=== PATIENT | male | born 1955 | race Caucasian/White ===

== ENCOUNTER 2017-11-18 08:38 | Inpatient (IN) | payer OTHER ==
[~2017-11-18] VITALS: Ht 177.8 cm; Wt 94.8 kg
[2017-11-18 09:39] LABS: BASOPHILS % 0.5 % (0.0-1.0); EOSINOPHILS # (AUTO) 0.1 (0.0-0.4); EOSINOPHILS % 1.3 % (0.0-6.0); HEMATOCRIT 49.4 % (38.2-49.6); LYMPHOCYTES # (AUTO) 1.1 (1.0-3.2); LYMPHOCYTES % 12.3 % (18.0-39.1); MEAN CORPUSCULAR HEMOGLOBIN 30.6 pg (28-32); MEAN CORPUSCULAR HGB CONC 34.4 g/dL (31-35); MEAN CORPUSCULAR VOLUME 88.8 fL (81-99); MONOCYTES # (AUTO) 0.7 (0.2-0.8); MONOCYTES % 8.3 % (4.4-11.3); NEUTROPHILS # (AUTO) 6.7 (2.1-6.9); NEUTROPHILS % 77.3 % (38.7-80.0); PLATELET COUNT 204 x10e3/uL (140-360); RED BLOOD COUNT 5.56 x10e6/uL (4.3-5.7); RED CELL DISTRIBUTION WIDTH 13.6 % (11.7-14.4)
--- NOTE | 2017-11-18 09:46 | Diagnostic Imaging Report ---
Examination: CT BRAIN WITHOUT CONTRAST History:Slurred speech. Dizziness. Comparison studies:None Technique: Axial images were obtained from the skull base to the vertex. Coronal and sagittal images reconstructed from the axial data. Intravenous contrast: None Findings: Scalp: No abnormalities. Bones: No fractures, blastic or lytic lesions. Brain sulci: Appropriate for age. Ventricles: Normal in size and configuration. No hydrocephalus. Extra-axial space: No abnormalities. Parenchyma: There is a vague area of hypoattenuation in the right striatocapsular region. No masses, hemorrhage, or acute or chronic cortical based vascular insults. Sellar/suprasellar region: No abnormalities. Craniocervical junction: Patent foramen magnum. No Chiari one malformation. Incidental findings: None. Impression: 1. 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 2. No hemorrhage. Signed by: Dr. Leigh Díaz M.D. on 11/18/2017 9:43 AM
[2017-11-18 09:48] LABS: INR 0.97; PROTHROMBIN TIME 12.1 seconds (11.9-14.5)
[2017-11-18 09:49] LABS: PARTIAL THROMBOPLASTIN TIME 26.5 seconds (23.8-35.5)
--- NOTE | 2017-11-18 09:57 | Diagnostic Imaging Report ---
PROCEDURE: A single AP view of the chest. COMPARISON: None. INDICATIONS: SLURRED SPEECH, DIZZINESS FINDINGS: Lines/tubes: None. Lungs: The lungs are well inflated and clear. There is no evidence of pneumonia or pulmonary edema. Pleura: There is no pleural effusion or pneumothorax. Heart and mediastinum: The heart and the mediastinum are unremarkable. Bones: No acute bony abnormality. Degenerative changes of the thoracic spine. IMPRESSION: No acute radiographic abnormality. Dictated by: Josh Hadley M.D. on 11/18/2017 at 9:59 Electronically approved by: Josh Hadley M.D. on 11/18/2017 at 9:59
[2017-11-18 09:58] LABS: ALANINE AMINOTRANSFERASE 23 IU/L (0-55); ALBUMIN 3.6 g/dL (3.5-5.0); ALKALINE PHOSPHATASE 62 IU/L (40-150); BLOOD UREA NITROGEN 20 mg/dL (7-26); BUN/CREATININE RATIO 20 (6-25); CALCIUM 9.9 mg/dL (8.4-10.2); CARBON DIOXIDE 25 mmol/L (22-29); CHLORIDE 101 mmol/L (98-107); CREATINE KINASE 132 IU/L (30-200); CREATININE, SERUM 1.01 mg/dL (0.72-1.25); EST GLOMERULAR FILTRATION RATE > 60 ML/MIN (60-); GLUCOSE 272 mg/dL (74-118); SODIUM 138 mmol/L (136-145)
[2017-11-18] MEDS ORDERED: GLIMEPIRIDE4 MG (10:01)
[2017-11-18] MEDS ORDERED: JANUVIA100 MG (10:01)
[2017-11-18] MEDS ORDERED: INNOPRAN XL80 MG (10:01)
[2017-11-18] MEDS ORDERED: ESCITALOPRAM OX10 MG (10:01)
[2017-11-18] MEDS ORDERED: AMLODIPINE BESY10 MG (10:01)
[2017-11-18] MEDS ORDERED: FARXIGA PO (10:01)
[2017-11-18] MEDS ORDERED: METFORMIN HCL500 MG (10:01)
[2017-11-18] MEDS ORDERED: PIOGLITAZONE HC45 MG (10:01)
[2017-11-18] MEDS ORDERED: ASPIRIN 325 MG TAB PO ONE (10:15)
--- OUTSIDE RECORDS SUMMARY | 2017-11-18 10:52 | XMS REPORT ---
Author Author [facility] Address Unknown Phone Unavailable Care Team Providers Care Sales Consulting Director Name Role Phone RAVINDRA NAIK Unavailable Unavailable Problems This patient has no known problems. Allergies, Adverse Reactions, Alerts This patient has no known allergies or adverse reactions. Medications This patient has no known medications. Results Test Description Test Time Test Comments Text Results Atomic Results Result Comments CT BRAIN WO [place] [address] Patient Name: NINA PERDOMO MR #: [id number] : 1955 Age/Sex: 62/M Req #: [id number] Adm Physician: Ordered by: RAVINDRA NAIK MD Report #: [id number] Location: ER Room/Bed: Procedure: [id number] CT/CT BRAIN WO Exam Date: 11/18/17 Exam Time: 0908 REPORT STATUS: Signed Examination: CT BRAIN WITHOUT CONTRAST History:Slurred speech. Dizziness. Comparison studies:None Technique: Axial images were obtained from the skull base to the vertex. Coronal and sagittal images reconstructed from the axial data. Intravenous contrast: None Findings: Scalp: No abnormalities. Bones: No fractures, blastic or lytic lesions. Brain sulci: Appropriate for age. Ventricles: Normal in size and configuration. No hydrocephalus. Extra-axial space: No abnormalities. Parenchyma: There is a vague area of hypoattenuation in the right striatocapsular region. No masses, hemorrhage, or acute or chronic cortical based vascular insults. Sellar/suprasellar region: No abnormalities. Craniocervical junction: Patent foramen magnum. No Chiari one malformation. Incidental findings: None. Impression: 1. 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 2. No hemorrhage. Signed by: Dr. Leigh Díaz M.D. on 11/18/2017 9:43 AM Dictated By: LEIGH LEAL MD 2 Transcribed By: ISABELA on 11/18/17942 COPY TO: RAVINDRA NAIK MD CHEST SINGLE (PORTABLE) [place] [address] Patient Name: NIAN PERDOMO MR #: [id number] : 1955 Age/Sex: 62/M Req #: [id number] Adm Physician: Ordered by: RAVINDRA NAIK MD Report #: [id number] Location: ER Room/Bed: Procedure: [id number] DX/CHEST SINGLE (PORTABLE) Exam Date: 11/18/17 Exam Time: 914 REPORT STATUS: Signed PROCEDURE: A single AP view of the chest. COMPARISON: None. INDICATIONS: SLURRED SPEECH, DIZZINESS FINDINGS: Lines/tubes: None. Lungs : The lungs are well inflated and clear. There is no evidence of pneumonia or pulmonary edema. Pleura: There is no pleural effusion or pneumothorax. Heart and mediastinum: The heart and the mediastinum are unremarkable. Bones: No acute bony abnormality. Degenerative changes of the thoracic spine. IMPRESSION: No acute radiographic abnormality. Dictated by: Tisha Wills M.D. on 11/18/2017 at 9:59 Electronically approved by: Tisha Wills M.D. on 11/18/2017 at 9:59 Dictated By: TISHA WILLS MD 8 COPY TO: RAVINDRA NAIK MD
[2017-11-18 13:37] LABS: BILIRUBIN,URINE NEGATIVE (NEGATIVE); CLARITY,URINE CLEAR (CLEAR); COLOR,URINE YELLOW (YELLOW); KETONES,URINE 2+ (NEGATIVE); LEUKOCYTE ESTERASE ,URINE NEGATIVE (NEGATIVE); URINE UROBILINOGEN 0.2 mg/dL (0.2 - 1)
[2017-11-18 13:38] LABS: NITRITE,URINE NEGATIVE (NEGATIVE); PROTEIN,URINE DIPSTICK NEGATIVE (NEGATIVE)
[2017-11-18 13:45] LABS: EPITHELIAL CELLS,URINE RARE /LPF
[2017-11-18] MEDS: CLOPIDOGREL BISULFATE 75 MG TAB PO SCH (14:31)
--- NOTE | 2017-11-18 16:08 | Consultation ---
DATE OF CONSULTATION: November 18, 2017 NEUROLOGY CONSULTATION HISTORY OF PRESENT ILLNESS: Mr. Camacho is a 62-year-old, ydje-rziz-larajwuq man, with past medical history significant for hypertension, hyperlipidemia, and diabetes mellitus, type 2, presenting to the emergency center at [facility] on November 18, 2017, with symptoms suspicious for stroke. Two days prior to admission, the patient noted mildly slurred speech. Thinking nothing of it, the patient went to bed on Tuesday night (11/16/2017). When he awoke the following morning, (11/17/2017), the patient noted worsened slurred speech as well as left-sided weakness affecting the arm and leg. Mr. Camacho reports tingling of the left thigh and foreleg, but this is chronic. Later that same day, he noticed impairment of balance and a mildly unsteady gait. Mr. Camacho does not report a visual field cut or other disturbance, aphasia, numbness, dizziness or confusion. After the symptoms persisted for more than 1 day, the patient went to his primary care physician, Dr. Manuelito Coburn, who recommended the patient proceed to the emergency center at [facility] for further evaluation. Upon arrival in the emergency center, the patient was afebrile with a blood pressure of 204/102 mmHg with a pulse of 77 beats per minute. Significant findings on the patient's neurological examination included mildly slurred speech. Otherwise, the neurological examination was documented as being nonfocal. A CT of the brain without contrast was performed and revealed an age-indeterminate lacunar infarct in the right striatocapsular region. Mr. Camacho will be admitted to [facility] for further evaluation and treatment. The patient does not report experiencing similar symptoms previously. Mr. Camacho does report taking an aspirin every day. REVIEW OF SYSTEMS: Chest pain, rhinorrhea, arthralgias, dysarthria, weakness of the left arm and leg, tingling of the left leg, impaired balance and gait, occasional left sciatica, joint pain. Otherwise, the 12-point review of systems is negative. PAST MEDICAL HISTORY: Hypertension, hyperlipidemia, diabetes mellitus type 2, anxiety, meningitis. PAST SURGICAL HISTORY: [place] teeth extraction, irrigation and debridement of rectal abscess. PAST HOSPITALIZATIONS: Surgeries and procedures as listed, meningitis. FAMILY HISTORY: The patient was adopted from a foreign country [place] and is not aware of any family medical history. SOCIAL HISTORY: The patient is . He is a retired corporate law specialist. Mr. Camacho does not report current or prior tobacco, alcohol, or recreational drug use. HOME MEDICATIONS 1. Aspirin daily. 2. Norvasc 10 mg by mouth daily. 3. Escitalopram 10 mg by mouth daily. 4. Glimepiride 4 mg. 5. Metformin 500 mg. 6. Pioglitazone 45 mg. 7. Propranolol 80 mg by mouth daily. 8. Januvia 100 mg. 9. Farxiga 10 mg. ALLERGIES: NO KNOWN DRUG ALLERGIES. NO KNOWN FOOD ALLERGIES. POSSIBLE SENSITIVITY TO LATEX. NO KNOWN ALLERGIES TO IODINE OR OTHER CONTRAST MATERIALS. PHYSICAL EXAMINATION VITAL SIGNS: Height 70 inches. Weight 220 pounds. BMI 31.6 kilograms per meter squared. Blood pressure 159/102 mmHg, pulse 107 beats per minute, respiratory rate 18 breaths per minute, and oxygen saturation 97% on room air. GENERAL: The patient is awake and alert, does not appear distressed. Mildly obese. HEENT: Normocephalic, atraumatic. Pupils are equal, round and reactive to light. Moist mucous membranes. NECK: Supple. No appreciable thyromegaly. No appreciable carotid bruits. CARDIOVASCULAR: S1 and S2, regular rate and rhythm. No murmurs, rubs or gallops. RESPIRATORY: Clear to auscultation bilaterally. No wheezes, rhonchi or rales. EXTREMITIES: The skin is warm and dry. No clubbing, cyanosis, or edema. The posterior tibial and dorsalis pedis pulses are 2+ and symmetric. SKIN: No rashes or lesions. NEUROLOGIC EXAMINATION MEMORY/ATTENTION: The patient is awake and alert, oriented to person, place, time and situation. CRANIAL NERVES: Cranial nerve I: Not tested. Cranial nerves II, III, IV, and : Pupils are equal and round, react briskly to light (from 4 mm to 2 mm). Extraocular movements intact. No nystagmus. Cranial nerve V: Sensation to light touch and pinprick is intact in the bilateral V1 through V3 distributions. Strength of the temporalis and masseter muscles is within normal limits. Cranial nerve VII: The face is symmetric as are all facial movements. Strength is within normal limits. Cranial nerve VIII: Hearing is intact to finger rub bilaterally. Cranial nerves IX and X: The soft palate elevates equally and symmetrically. Cranial nerve XI: Normal strength of the bilateral sternocleidomastoid and trapezius muscles. Cranial nerve XII: The tongue protrudes midline and moves symmetrically from side to side. STRENGTH: Bulk is normal. Strength is 5/5 in the bilateral deltoids, biceps, triceps, wrist flexors and extensors, finger flexors and extensors, intrinsic hand muscles, hip flexors, knee flexors and extensors, ankle dorsiflexion and plantarflexion, and intrinsic foot muscles. Tone is normal. DTRs: Deep tendon reflexes are 1+ and symmetric at the triceps, biceps and brachial radialis. Deep tendon reflexes are trace and symmetric at the patellas. Deep tendon reflexes are absent and symmetric at the Achilles. Plantar responses are flexor bilaterally. Absent clonus. SENSATION: Sensation is intact to light touch and pinprick in both arms and both legs. CEREBELLAR: Kwnxgv-hmeh-oqytde and heel-reina movements are intact without dysmetria or other impairment. GAIT: Deferred. SPEECH: Spontaneous speech has a hyponasal quality, flaccid dysarthria. There is no appreciable aphasia. Repetition is intact. INVOLUNTARY MOVEMENTS: None. PRONATOR DRIFT: None. LABORATORY DATA: Sodium 138, potassium 4.0, chloride 101, carbon dioxide 25. Anion gap 16. BUN 20, creatinine 1.01. Estimated GFR greater than 60. ULJ-zl-tsiokihtyr ratio 20. Glucose is 272 and calcium 9.9. Total bilirubin 0.8, AST 16, ALT 23, alkaline phosphatase 62, total protein 7.2, albumin 3.6, globulin 3.6, ihskgxd-eu-pibdygdl ratio 1.0. Creatine kinase 132. CK-MB 2.20. Troponin I 0.003. B-natriuretic peptide 81.4. The CBC with differential and platelets reveals a white blood cell count of 8.67 with 77.3% neutrophils, 12.3% lymphocytes, 8.3% monocytes, 1.3% eosinophils and 0.5% basophils. The hemoglobin and hematocrit are 17 and 49.4, respectively. Platelet count is 204. PT 12.1, INR 0.97, PTT 26.5. Urinalysis reveals 3+ glucose and 2+ ketones. DIAGNOSTIC STUDIES 1. EKG, 11/18/2017: Normal sinus rhythm at 73 beats per minute. 2. Chest x-ray, 11/18/2017: No acute radiographic abnormality. 3. CT of the brain without contrast, 11/18/2017: On my review, there is a probable subacute lacunar ischemic infarct in the right striatocapsular region. ASSESSMENT AND PLAN: Mr. Camacho is a 62-year-old, epux-zrao-gpmudbrp man with multiple vascular risk factors, presenting with an approximately 2-day history of dysarthria, left hemiparesis affecting the arm and leg, impairment of balance, and unsteady gait. The CT of the brain without contrast performed in the emergency center did reveal an age-indeterminate lacunar infarct in the right striatocapsular region. On neurological examination, the patient has flaccid dysarthria. His laboratory data and other diagnostic studies have been reviewed and are documented above. RECOMMENDATIONS 1. Lipid panel and hemoglobin A1c. 2. MRI brain without contrast. 3. Echocardiogram. 4. Bilateral carotid artery ultrasound with Doppler. 5. Discontinue aspirin. Plavix 75 mg by mouth daily for stroke prophylaxis will be prescribed. 6. Allow permissive hypertension pending the results of the vessel studies. 7. Follow up lipid panel. Continue home medication. 8. Follow up hemoglobin A1c. Continue home medications. Tight glycemic control while the patient is in the hospital. 9. Speech and physical therapy consultations will be ordered. 10. GI prophylaxis: Pepcid 20 mg by mouth twice daily. DVT prophylaxis: Lovenox 40 mg subcutaneously daily. 11. Defer treatment of the remaining medical comorbidities to the primary and other services. Thank you for this consultation. I will continue to follow the patient while he remains in the hospital time. Time spent: 50 minutes. Job#: [id number] REBECCA
[2017-11-18] MEDS: ENOXAPARIN SOD INJ 40 MG/0.4 ML SYR SC SCH (17:45)
[2017-11-18] MEDS: FAMOTIDINE 20 MG TAB PO SCH (17:45)
[2017-11-18 18:24] LABS: CREATINE KINASE MB 2.4 ng/mL (0-5.0)
[2017-11-18 19:16] VITALS: BP 172/83
[2017-11-18 20:00] VITALS: BP 150/75
[2017-11-18 20:05] VITALS: BP 150/75
[2017-11-19] VITALS: BP 167/87
[2017-11-19 04:00] VITALS: BP 187/91
--- NOTE | 2017-11-19 07:25 | History and Physical ---
HISTORY OF PRESENT ILLNESS: The patient comes in with weakness. Mr. Camacho is a 62-year-old gentleman who was in his usual state of health until 2 days prior to admission. The patient started with slurry speech. The patient did not take mind to fit. The next day the patient noticed slurry speech and left-sided weakness affecting his upper extremity and lower extremity. The patient also felt tingling in the lateral part of the thigh and also upper extremity. This forced the patient to come to the emergency room. He did have some mild unsteady gait and came in, and was admitted to the hospital for possible acute CVA. PAST MEDICAL HISTORY: History of hypertension, history of diabetes mellitus, history of anxiety. PAST SURGICAL HISTORY: History of rectal abscess, incision and drainage and otherwise negative. FAMILY HISTORY: The patient was adopted from a foreign county in [facility]. SOCIAL HISTORY: The patient has no ETOH and no IV drug use. No smoking either. MEDICATIONS: The patient takes: 1. Norvasc 10 mg. 2. Lexapro 10 mg. 3. Glimepiride 4 mg. 4. Metformin 500 mg. 5. Pioglitazone 45 mg. 6. Propranolol 80 mg. 7. Januvia 100 mg. 8. Farxiga 10 mg. 9. Aspirin 81 mg. ALLERGIES: ALLERGIC TO LATEX AND CONTRAST. REVIEW OF SYSTEMS: Negative for chest pain. No shortness of breath. No nausea, vomiting or diarrhea. No constipation. No rectal bleeding. No hematochezia. No hematemesis. PHYSICAL EXAMINATION GENERAL: The patient is alert and oriented times 3. VITALS: Blood pressure 150/90, pulse 107 beats per minute. NEUROLOGICAL: Cranial nerves normal. Pupils equal and reactive to light and accommodation. Strength is normal 5/5 in all muscle groups. Deep tendon reflexes are normal. No clonus present. Cerebral: No ataxia present. Speech has been normal. CV: S1 and S2 normal. Regular rate and rhythm. ABDOMEN: Nontender and nondistended. EXTREMITIES: No clubbing. No cyanosis. No edema. IMAGING STUDIES: MRI is pending. Brain CT shows age-indeterminate right-sided capsular infarct. No hemorrhages noted. Also, chest x-ray shows no acute radiographic abnormalities. LABORATORY VALUES: White count was normal. Hemoglobin and hematocrit was normal. LDL was 133, cholesterol 204, triglycerides 99. Coags were also normal. ASSESSMENT 1. Possible cerebrovascular accident: Awaiting MRI. 2. Hypertension. 3. Diabetes. 4. Hyperlipidemia. PLAN: Continue all his home medications. Will put him on a sliding scale and also will start on atorvastatin 40 mg at bedtime for his cholesterol. Further recommendations per clinical course. Also, physical therapy has been ordered at this time. Swallow evaluation has been ordered at this time. Job#: [id number] REEMA
[2017-11-19] MEDS ORDERED: DEXTROSE 50% SYRINGE 50 ML IV PRN (07:45)
[2017-11-19 08:00] VITALS: BP 180/86
[2017-11-19] MEDS ORDERED: METFORMIN HCL 500 MG TAB PO SCH (08:00)
[2017-11-19 08:03] LABS: CREATINE KINASE 179 IU/L (30-200)
[2017-11-19] MEDS: PIOGLITAZONE HCL 45 MG TAB PO SCH (08:59)
[2017-11-19] MEDS: FAMOTIDINE 20 MG TAB PO SCH ×2 (08:59→16:35)
[2017-11-19] MEDS: PROPRANOLOL HCL 80 MG CAPCR PO SCH (08:59)
[2017-11-19] MEDS ORDERED: ENOXAPARIN SOD INJ 40 MG/0.4 ML SYR SC SCH (09:00)
[2017-11-19] MEDS: SITAGLIPTIN 100 MG TAB PO SCH (09:00)
[2017-11-19] MEDS ORDERED: ASPIRIN 325 MG TAB EC PO SCH (09:00)
[2017-11-19] MEDS: ESCITALOPRAM OXALATE 10 MG TAB PO SCH (09:00)
[2017-11-19] MEDS: AMLODIPINE BESYLATE 10 MG TAB PO SCH (09:00)
[2017-11-19] MEDS: CLOPIDOGREL BISULFATE 75 MG TAB PO SCH (09:00)
[2017-11-19] MEDS: INSULIN LISPRO 100 UNIT/1 ML 3ML VIAL SQ SCH ×3 (12:32→21:36)
[2017-11-19 12:46] VITALS: BP 172/93
[2017-11-19] MEDS: ENOXAPARIN SOD INJ 40 MG/0.4 ML SYR SC SCH (16:35)
[2017-11-19 17:20] VITALS: BP 166/82
[2017-11-19 20:00] VITALS: BP 166/79
[2017-11-19] MEDS ORDERED: ATORVASTATIN 20 MG TAB PO SCH (21:00)
[2017-11-20] VITALS: BP 158/81
[2017-11-20 00:05] VITALS: BP 158/81
[2017-11-20 04:00] VITALS: BP 159/74
[2017-11-20 08:18] VITALS: BP 181/84
[2017-11-20] MEDS: FAMOTIDINE 20 MG TAB PO SCH (08:19)
[2017-11-20] MEDS: ESCITALOPRAM OXALATE 10 MG TAB PO SCH (08:20)
[2017-11-20] MEDS: PROPRANOLOL HCL 80 MG CAPCR PO SCH (08:20)
[2017-11-20] MEDS: PIOGLITAZONE HCL 45 MG TAB PO SCH (08:20)
[2017-11-20] MEDS: SITAGLIPTIN 100 MG TAB PO SCH (08:20)
[2017-11-20] MEDS: AMLODIPINE BESYLATE 10 MG TAB PO SCH (08:20)
[2017-11-20] MEDS: CLOPIDOGREL BISULFATE 75 MG TAB PO SCH (08:20)
[2017-11-20] MEDS: INSULIN LISPRO 100 UNIT/1 ML 3ML VIAL SQ SCH ×2 (08:33→12:53)
[2017-11-20 10:15] VITALS: BP 162/75
[2017-11-20 11:43] VITALS: BP 146/65
[2017-11-20] MEDS ORDERED: ATORVASTATIN CA20 MG PO (12:07)
[2017-11-20] MEDS ORDERED: PLAVIX75 MG PO (12:07)
--- NOTE | 2017-11-22 10:09 | Diagnostic Imaging Report ---
History: Abnormal CT Comparison studies: Same day CT head Technique: Sagittal T2; axial DWI, FLAIR, MPGR, T1, Coronal FLAIR. Intravenous contrast: None Findings: Scalp: Normal in signal . No masses . Bone marrow: Normal in signal intensity. Extra-axial: No masses, no fluid collections. Brain sulci: Appropriate for age. Ventricles: Normal in size . No hydrocephalus . Parenchyma: Restricted diffusion at the right-sided striatocapsular region. Scattered small T2/Flair hyperintensities of the periventricular and deep white matter, similar changes at the ellen. No masses, hemorrhage, acute or chronic vascular insults. Suprasellar region: No abnormalities. Craniocervical junction: No abnormalities. Patent foramen magnum. No Chiari one malformation. Vessels: Normal flow-voids in the arteries and sinuses. 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 IMPRESSION: 1. Acute right-sided striatocapsular infarct. 2. Mild chronic microvascular ischemic changes of the white matter. The above finding was reported and acknowledged by RN. Crespo at 6:25PM Signed by: DR Vincent Gil M.D. on 11/22/2017 10:05 AM
== END 2017-11-20 12:50 | disposition home or self-care (01) | DRG 66 ==
LOC: ER 08:38 → ERHOLD 10:50 → MED/SURG 18:10
PROVIDERS: ADMIT Internal Medicine; ATTEND Internal Medicine
DX: I63.9 Cerebral infarction, unspecified (principal); R41.82 Altered mental status, unspecified; E11.9 Type 2 diabetes mellitus without complications; E78.5 Hyperlipidemia, unspecified; E11.65 Type 2 diabetes mellitus with hyperglycemia; E66.9 Obesity, unspecified; Z68.30 Body mass index [BMI] 30.0-30.9, adult
CPT/HCPCS: 36415; 70450; 70551; 71045; 80053; 80061; 81001; 82550; 82553; 82948; 83036; 83880; 84484; 85025; 85610; 85730; 92523; 93005; 93306; 93880; 99284; J1650

== ENCOUNTER → 2017-12-08 | Outpatient (RCR) | payer OTHER ==
[~2017-12-08] MED LIST: AMLODIPINE BESY10 MG; ATORVASTATIN CA20 MG PO; ESCITALOPRAM OX10 MG; FARXIGA PO; GLIMEPIRIDE4 MG; INNOPRAN XL80 MG; JANUVIA100 MG; METFORMIN HCL500 MG; PIOGLITAZONE HC45 MG; PLAVIX75 MG PO
== END ==
LOC: PT 11-29 13:23 → OT 08:51
PROVIDERS: ATTEND Internal Medicine
DX: I63.30 Cerebral infarction due to thrombosis of unspecified cerebral artery (principal); R53.1 Weakness; R27.9 Unspecified lack of coordination

== ENCOUNTER 2017-12-23 10:51 | Outpatient (RCR) | payer OTHER | END 2018-01-07 | LOC: PT 10:51 | PROVIDERS: ATTEND Internal Medicine | DX: I63.30 Cerebral infarction due to thrombosis of unspecified cerebral artery (principal) | CPT/HCPCS: 92523; 97139 ==